=== PATIENT | male | born 1970 | race Caucasian/White ===

== ENCOUNTER 2019-11-29 14:54 | Outpatient (CLI) | payer BC, SELFPAY ==
[2019-11-29 15:40] LABS: INR 1.1; Prothrombin Time 11.6 Seconds (9.64-11.0)
== END 2019-11-29 14:55 | disposition home or self-care (01) ==
PROVIDERS: Visit Provider Nurse Practitioner Family
DX: Z79.01 Long term (current) use of anticoagulants (principal)
CPT/HCPCS: 36415; 85610

== ENCOUNTER 2019-12-26 07:55 | Outpatient (CLI) | payer BC, SELFPAY ==
[2019-12-26 08:19] LABS: INR 2.1; Prothrombin Time 21.1 Seconds (9.64-11.0)
== END 2019-12-26 07:56 | disposition home or self-care (01) ==
LOC: CHSLAB 08:01
PROVIDERS: PCP Nurse Practitioner Family; Visit Provider Nurse Practitioner Family
DX: Z79.01 Long term (current) use of anticoagulants (principal)
CPT/HCPCS: 36415; 85610

== ENCOUNTER 2020-04-09 08:05 | Outpatient (CLI) | payer BC, SELFPAY ==
[2020-04-09 08:42] LABS: INR 2.8; Prothrombin Time 28.1 Seconds (9.64-11.0)
== END 2020-04-09 08:06 | disposition home or self-care (01) ==
LOC: CHSLAB 08:07
PROVIDERS: PCP Nurse Practitioner Family; Visit Provider Nurse Practitioner Family
DX: D68.2 Hereditary deficiency of other clotting factors (principal)
CPT/HCPCS: 36415; 85610

== ENCOUNTER 2020-04-17 17:20 | Outpatient (NON) | payer BC, SELFPAY ==
[2020-04-17 17:38] LABS: Hemoglobin A1C 9.3 % (<5.7)
[2020-04-17 17:41] LABS: Creatinine Urine 51.49 mg/dL (40-278)
[2020-04-17 17:46] LABS: MALB Creatinine Ratio 21.7 mg/g (0-30); Microalbumin Urine Random 11.2 mg/L
[2020-04-17 17:55] LABS: Alanine Aminotransferase 29 U/L (16-63); Albumin Level 3.9 g/dL (3.4-5.0); Alkaline Phosphatase 72 U/L (46-116); Anion Gap 14.1 mmol/L (7-16); Aspartate Amino Transferase 22 U/L (15-37); Bilirubin,Total 0.4 mg/dL (0.00-1.00); Blood Urea Nitrogen 16 mg/dL (7-18); Calcium 9.2 mg/dL (8.5-10.1); Carbon Dioxide 27 mmol/L (21-32); Chloride 100 mmol/L (98-108); Cholesterol 250 mg/dL (0-200); Estimated Glomerular Filt Rate 60; Glucose 380 mg/dL (70-99); HDL Direct 41 mg/dL (40-60); Osmolality Calculated 301 mOsm/kg (285-295); Potassium 4.1 mmol/L (3.5-5.1); Sodium 137 mmol/L (136-145); Total Protein 7.7 g/dL (6.4-8.2)
[2020-04-17 18:06] LABS: LDL Cholesterol Calculated 43 mg/dL (<130)
[2020-04-17 18:07] LABS: LDL Cholesterol Direct 97 mg/dL (0-130); Triglycerides 832 mg/dL (0-150)
== END 2020-04-17 17:21 ==
LOC: CHSLAB 17:22
PROVIDERS: Visit Provider Nurse Practitioner Family
DX: E11.9 Type 2 diabetes mellitus without complications (principal); E78.5 Hyperlipidemia, unspecified
CPT/HCPCS: 36415; 80053; 80061; 82043; 83036; 83721

== ENCOUNTER 2020-05-14 10:26 | Emergency (ER) | payer BC, SELFPAY ==
--- NOTE | ~2020-05-14 | CT_ITS ---
EXAMINATION: CT abdomen pelvis wo con DATE: 05/14/2020 11:10 INDICATION: Right abdominal pain. Nausea and vomiting. TECHNIQUE: Computed tomography (CT) of the abdomen and pelvis was performed without intravenous contr ast. Automated exposure control and iterative reconstruction technique were employed. The dose-length product was 604.69 mGy-cm. COMPARISON: CT abdomen and pelvis 11/17/2010 FINDINGS: The visualized portions of the lung bases demonstrate calcified right lung nodules, consist ent with old granulomatous disease. No pleural effusion. The heart size is normal. No pericardial eff usion. There is diffuse hepatic steatosis. The gallbladder, spleen, pancreas, and adrenal glands are normal. There is mild right hydronephrosis and hydroureter. There is a 2 mm stone in distal right ure ter. There is a 2 mm stone in left kidney. There are no dilated loops of bowel. The appendix is ethan l. There is no free intraperitoneal fluid. There is a 2.2 x 3.1 cm right inguinal lymph node. There a re mildly enlarged right external iliac and common iliac lymph nodes. There is mild thoracolumbar spo ndylosis. IMPRESSION: 1. 2 mm stone in distal right ureter with mild right hydronephrosis and hydroureter. 2. 2 mm nonobstructing left kidney stone. 3. Mildly enlarged right inguinal, external iliac, and common iliac lymph nodes, which may be reactiv e lymph nodes or less likely alcides metastatic disease or lymphoma. Reviewed, dictated and finalized at location A. IMPRESSION: 1. 2 mm stone in distal right ureter with mild right hydronephrosis and hydrour eter. 2. 2 mm nonobstructing left kidney stone. 3. Mildly enlarged right inguinal, external iliac, and common iliac lymph nodes , which may be reactive lymph nodes or less likely alcides metastatic disease or lymphoma.
[2020-05-14 10:35] VITALS: BP 189/109; PULSE 62; RESP 18; TEMP 36.6; O2SAT 97
[2020-05-14] MEDS: SODIUM CHLORIDE 0.9% IV 1,000 ML 999 ML (10:47)
[2020-05-14] MEDS: KETOROLAC 30 MG/ML VIAL (*BKC) (10:47)
[2020-05-14 10:58] LABS: Basophils Absolute Auto 0.02 K/mm3 (0.00-0.10); Basophils Percent Auto 0.3 % (0.0-1.0); Eosinophils Absolute Auto 0.13 K/mm3 (0.02-0.50); Eosinophils Percent Auto 2.1 % (1.0-6.0); Hematocrit 47.4 % (40.0-54.0); Hemoglobin 15.2 g/dL (14.0-18.0); Immature Granulocyte Absolute 0.04 K/mm3 (0.00-0.00); Immature Granulocyte Percent A 0.6 % (0.0-0.0); Lymphocytes Percent Auto 37.3 % (18.0-42.0); Mean Corpuscular HGB Conc 32.1 g/dL (32.0-36.0); Mean Corpuscular Hemoglobin 27.6 pg (27.0-31.0); Mean Corpuscular Volume 86.2 fL (78.0-102.0); Monocytes Absolute Auto 0.37 K/mm3 (0.10-0.90); Neutrophils Absolute Auto 3.3 K/mm3 (1.7-7.2); Neutrophils Percent Auto 53.7 % (50.0-70.0); Platelet Count Result 227 K/mm3 (150-420); Red Cell Distribution Width 13.3 % (11.6-14.4); White Blood Count 6.2 K/mm3 (4.8-10.8)
[2020-05-14 11:07] VITALS: BP 137/82
[2020-05-14 11:09] LABS: INR 1.6; Prothrombin Time 16.4 Seconds (9.64-11.0)
[2020-05-14 11:14] LABS: Alanine Aminotransferase 27 U/L (16-63); Albumin Level 3.9 g/dL (3.4-5.0); Alkaline Phosphatase 68 U/L (46-116); Anion Gap 9 mmol/L (8-16); Aspartate Amino Transferase 23 U/L (15-37); Bilirubin,Total 0.6 mg/dL (0.00-1.00); Blood Urea Nitrogen 11 mg/dL (7-18); Calcium 8.8 mg/dL (8.5-10.1); Carbon Dioxide 28 mmol/L (21-32); Chloride 103 mmol/L (98-108); Estimated Glomerular Filt Rate > 60; Glucose 196 mg/dL (70-99); Osmolality Calculated 294 mOsm/kg (285-295); Sodium 140 mmol/L (136-145)
[2020-05-14] MEDS: ONDANSETRON INJ 4 MG/2 ML VIAL IV PUSH (11:14)
[2020-05-14] MEDS: MORPHINE SULFATE 4 MG/ML INJ IV PUSH (11:15)
[2020-05-14] MEDS: MORPHINE SULFATE 4 MG/ML INJ IM (11:53)
--- NOTE | 2020-05-14 11:58 | ED.ABDPAIN ---
HPI - Abdominal Pain General Chief Complaint: Abdominal Pain Stated Complaint: vomiting, sweats, sharp pain in r side Source: patient Mode of arrival: ambulatory Limitations: no limitations History of Present Illness HPI narrative: Patient is a 50-year-old male who presents to the emergency department with complaints of right flank pain. Patient states that the pain started pretty intensely about an hour prior to arrival. He has had a kidney stone in the past. Patient relates that last week he noticed his urine was very dark, and he drink extra fluid and the urine color lightened up. the pain has been very intense, and vomited several times. MD elicited complaint: flank pain Pertinent past history: kidney stones Onset (ago): hour(s) Pain Consistency: constant Location: R flank Severity: severe Quality: sharp Radiation: R flank Migration to: no migration Exacerbating factors: vomiting Relieving factors: nothing Associated symptoms: nausea and vomiting Related Data Home Medications Medication Instructions Recorded Confirmed warfarin 8 mg PO DAILY 05/14/20 05/14/20 Allergies Allergy/AdvReac Type Severity Reaction Status Date / Time No Known Allergies Allergy Verified 04/29/20 15:06 Review of Systems Constitutional: Constitutional: Reports no additional constitutional complaints Eyes: Eyes: Reports no additional eye complaints ENT: Reports system reviewed and no additional complaints, except as documented Cardiovascular: Cardiovascular: Reports no additional cardiovascular complaints Respiratory: Respiratory: Reports no additional respiratory complaints Gastrointestinal: Gastrointestinal: Reports abdominal pain, Reports nausea and Reports vomiting Genitourinary: Genitourinary: Reports as per HPI Musculoskeletal: Musculoskeletal: Reports no additional musculoskeletal complaints Integumentary/Breasts: Skin/Breast: Reports system reviewed and no additional complaints, except as docu Neurologic: Reports system reviewed and no additional complaints, except as documented Psychiatric: Psychiatric: Reports no additional psychiatric complaints Endocrine: Endocrine: Reports no additional endocrine complaints Hematologic/Lymphatic: Hematologic/Lymphatic: Reports no additional hematologic/lymphatic complaints Allergic/Immunologic: Allergic/Immunologic: Reports no additional allergic/immunologic complaints [facility] Past Medical History Medical History BMI 32.0-32.9,adult Factor V deficiency Hyperlipidemia Sleep apnea, unspecified Type 2 diabetes mellitus Social History Social History Smoking status: Never smoker Exam Const: General: alert and diaphoretic Nutritional Appearance: well nourished Orientation/consciousness: patient oriented x3 HENMT: Head: normal to inspection Eyes: Conjunctivae: conjunctivae normal Pupils: Equal, round and reactive pupils present Neck: Neck: normal visual inspection Chest: Chest palpation & inspection: normal inspection of the chest Resp: Effort & Inspection: normal respiratory effort Auscultation: clear to auscultation bilaterally Cardio: Rate: regular rate Rhythm: regular rhythm GI: GI Palp: Yes Soft to palpation, No Tenderness to palpation present (GI) and No Guarding due to palpation present (GI) Auscultation: normal bowel sounds Other: cva tenderness on right Back/Spine/Pelvis: Back: CVA tenderness Skin: General skin exam: normal color Neuro: General: patient oriented x3 Extrem: Other: chronic changes, and scratches. Pt states that he has fleas at home Psych: Mental Status: mental status grossly normal Course Vital Signs Vital signs: Vital Signs Temperature 36.6 C 05/14/20 10:35 Pulse Rate 62 05/14/20 10:35 Respiratory Rate 18 05/14/20 10:35 Blood Pressure 189/109 H 05/14/20 10:35 Pulse Oximetry 97
[2020-05-14] MEDS: SODIUM CHLORIDE 0.9% IV 500 ML 999 ML IV CONT (12:19)
[2020-05-14 13:07] LABS: Add Urine Microscopic? YES; Appearance Urine Sl Cloudy (Clear); Bilirubin Urine Negative (Negative); Blood Urine 3+ (Negative); Color Urine Yellow (Yellow); Glucose Urine UA 1+ (Negative); Ketones Urine Negative (Negative); Leukocyte Esterase Ur Negative LEU/UL (Negative); Nitrate Urine Negative (Negative); Protein Urine 1+ (Negative); Specific Grav Ur >= 1.030 (1.010-1.020); Urobilinogen Urine 0.2 mg/dL (0.2-1.0)
[2020-05-14 13:16] LABS: Bacteria Urine Trace /hpf; RBC Urine 21-50 /hpf (0-2); WBC Urine 0-3 /hpf (0-3)
[2020-05-14 13:36] VITALS: BP 108/60; PULSE 89; O2SAT 97
== END 2020-05-14 13:42 | disposition home or self-care (01) ==
PROVIDERS: Emergency Provider Emergency Medicine; PCP Nurse Practitioner Family
DX: N13.2 Hydronephrosis with renal and ureteral calculous obstruction (principal); E78.5 Hyperlipidemia, unspecified; E11.9 Type 2 diabetes mellitus without complications; D68.2 Hereditary deficiency of other clotting factors; G47.30 Sleep apnea, unspecified
CPT/HCPCS: 36415; 74176; 80053; 81001; 85025; 85610; 96361; 96372; 96374; 96375; 99284; J1885; J2270; J2405; J7030; J7040